=== PATIENT | female | born 2000 | race Caucasian/White ===

== ENCOUNTER → 2021-09-08 | Outpatient (REF) | LOC: M PLAIMG 11:31 | PROVIDERS: ATTEND Internal Medicine | DX: R06.02 Shortness of breath (principal) ==

== ENCOUNTER 2021-12-02 10:47 | Emergency (ER) | payer OTHER ==
[~2021-12-02] VITALS: Ht 162.6 cm; Wt 66.8 kg
[2021-12-02] MEDS ORDERED: BUSP15TA47 (10:58)
[2021-12-02] MEDS ORDERED: TOPI25TA10 (10:58)
[2021-12-02] MEDS ORDERED: HYOS0.374 (10:58)
[2021-12-02] MEDS ORDERED: ESCITALOPRAM (10:58)
[2021-12-02] MEDS ORDERED: ZOLP10TA2 (10:58)
[2021-12-02] MEDS ORDERED: BACTDSTA (10:58)
[2021-12-02 12:43] LABS: BASO # 0.1 10^3/uL (0.0-0.2); EOS # 0.1 10^3/uL (0.0-0.5); EOS % 1.4 % (0.0-3.0); HEMOGLOBIN 13.7 g/dl (12.0-15.5); LYMPH # 2.5 10^3/uL (1.5-5.0); LYMPH % 31.1 % (24.0-44.0); MEAN CORPUSCULAR HEMOGLOBIN 31.9 pg (27.0-33.0); MEAN CORPUSCULAR HGB CONC 34.3 g/dl (32.0-36.5); MEAN CORPUSCULAR VOLUME 93.2 fl (80.0-96.0); MONO # 0.5 10^3/uL (0.0-0.8); MONO % 5.8 % (2.0-8.0); NEUTROPHILS # 4.9 10^3/uL (1.5-8.5); NEUTROPHILS % 60.3 % (36.0-66.0); PLATELET COUNT, AUTOMATED 362 10^3/uL (150-450); RED BLOOD COUNT 4.29 10^6/uL (4.00-5.40); WHITE BLOOD COUNT 8.1 10^3/uL (4.0-10.0)
[2021-12-02 13:19] LABS: HCG, SERUM QUALITATIVE NEGATIVE (NEGATIVE)
[2021-12-02 13:30] LABS: ALBUMIN 4.4 GM/DL (3.2-5.2); ALT/SGPT 18 U/L (12-78); BILIRUBIN,DIRECT < 0.1 MG/DL (0.0-0.2); BILIRUBIN,TOTAL 0.3 MG/DL (0.2-1.0); BLOOD UREA NITROGEN 6 MG/DL (7-18); CALCIUM LEVEL 9.2 MG/DL (8.5-10.1); CARBON DIOXIDE LEVEL 22 MEQ/L (21-32); CHLORIDE LEVEL 110 MEQ/L (98-107); CREATININE FOR GFR 0.94 MG/DL (0.55-1.30); GLOMERULAR FILTRATION RATE > 60.0 (>60); GLUCOSE, FASTING 80 MG/DL (70-100); LIPASE 97 U/L (73-393); POTASSIUM SERUM 4.4 MEQ/L (3.5-5.1); SODIUM LEVEL 138 MEQ/L (136-145); TOTAL PROTEIN 7.8 GM/DL (6.4-8.2)
[2021-12-02] MEDS ORDERED: NS 1,000 ML IV ONE (14:10)
[2021-12-02] MEDS ORDERED: ONDANSETRON 4MG 2ML VIAL IV ONE (14:10)
[2021-12-02] MEDS ORDERED: KETOROLAC 30 MG/ML 1ML VIAL IV ONE (14:10)
[2021-12-02] MEDS ORDERED: ISOVUE-370 76% 100ML VIAL As Ordered ONE (14:17)
[2021-12-02] MEDS ORDERED: ONDA4TAB6 PO (16:26)
[2021-12-02 16:42] VITALS: BP 117/63
[2021-12-02 18:08] LABS: RSV AMPLIFICATION NEGATIVE (NEGATIVE)
== END 2021-12-02 16:44 | disposition home or self-care (01) ==
LOC: M ED 10:47
DX: N83.201 Unspecified ovarian cyst, right side (principal); K44.9 Diaphragmatic hernia without obstruction or gangrene; F32.A Depression, unspecified; K58.9 Irritable bowel syndrome, unspecified; Z88.0 Allergy status to penicillin; Z79.899 Other long term (current) drug therapy
CPT/HCPCS: 74177; 80048; 80076; 81001; 83690; 84703; 85025; 87631; 96361; 96374; 96375; 99284; J1885; J2405; Q9967

== ENCOUNTER 2021-12-16 14:35 | Emergency (ER) | payer OTHER ==
[~2021-12-16] VITALS: Ht 162.6 cm; Wt 66.8 kg
[~2021-12-16 14:35] MED LIST: BACTDSTA; BUSP15TA47 PO; ESCITALOPRAM; HYOS0.374 PO; ONDA4TAB6 PO; TOPI25TA10 PO; ZOLP10TA2 PO
[2021-12-16] MEDS ORDERED: NS 1,000 ML IV ONE (16:45)
[2021-12-16] MEDS ORDERED: KETOROLAC 30 MG/ML 1ML VIAL IV ONE (16:45)
[2021-12-16 17:57] LABS: BASO # 0.1 10^3/uL (0.0-0.2); BASO % 0.6 % (0.0-1.0); EOS # 0.1 10^3/uL (0.0-0.5); EOS % 1.7 % (0.0-3.0); HEMOGLOBIN 12.8 g/dl (12.0-15.5); LYMPH # 3.2 10^3/uL (1.5-5.0); LYMPH % 39.2 % (24.0-44.0); MEAN CORPUSCULAR HEMOGLOBIN 31.5 pg (27.0-33.0); MEAN CORPUSCULAR HGB CONC 32.8 g/dl (32.0-36.5); MEAN CORPUSCULAR VOLUME 96.1 fl (80.0-96.0); MONO # 0.5 10^3/uL (0.0-0.8); NEUTROPHILS # 4.3 10^3/uL (1.5-8.5); NEUTROPHILS % 52.3 % (36.0-66.0); PLATELET COUNT, AUTOMATED 337 10^3/uL (150-450); RED BLOOD COUNT 4.06 10^6/uL (4.00-5.40); WHITE BLOOD COUNT 8.2 10^3/uL (4.0-10.0)
[2021-12-16 18:04] LABS: APPEARANCE, URINE CLEAR (CLEAR); BACTERIA, URINE AUTO NEGATIVE (NEGATIVE); BILIRUBIN, URINE AUTO NEGATIVE (NEGATIVE); BLOOD, URINE BLOOD 1+ (NEGATIVE); COLOR, URINE YELLOW (YELLOW); GLUCOSE, URINE (UA) AUTO NEGATIVE (NEGATIVE); KETONE, URINE AUTO NEGATIVE (NEGATIVE); LEUKOCYTE ESTERASE, URINE AUTO NEGATIVE (NEGATIVE); MUCUS, URINE SMALL (NEGATIVE); NITRITE, URINE AUTO NEGATIVE (NEGATIVE); PROTEIN, URINE AUTO NEGATIVE (NEGATIVE); RBC, URINE AUTO 1 /HPF (0-3); SPECIFIC GRAVITY URINE AUTO 1.012 (1.002-1.035); SQUAMOUS EPITHELIAL CELL UR AU 0 /HPF (0-6); UROBILINOGEN, URINE AUTO 0.2 mg/dL (0.0-2.0); WBC, URINE AUTO 1 /HPF (0-3)
[2021-12-16 18:24] LABS: ALBUMIN 3.9 GM/DL (3.2-5.2); ALT/SGPT 28 U/L (12-78); BILIRUBIN,DIRECT 0.1 MG/DL (0.0-0.2); BILIRUBIN,TOTAL 0.3 MG/DL (0.2-1.0); BLOOD UREA NITROGEN 7 MG/DL (7-18); CALCIUM LEVEL 8.9 MG/DL (8.5-10.1); CARBON DIOXIDE LEVEL 25 MEQ/L (21-32); CHLORIDE LEVEL 110 MEQ/L (98-107); CREATININE FOR GFR 0.67 MG/DL (0.55-1.30); GLOMERULAR FILTRATION RATE > 60.0 (>60); GLUCOSE, FASTING 76 MG/DL (70-100); LIPASE 93 U/L (73-393); POTASSIUM SERUM 3.4 MEQ/L (3.5-5.1); SODIUM LEVEL 141 MEQ/L (136-145)
[2021-12-16] MEDS ORDERED: ISOVUE-370 76% 100ML VIAL As Ordered ONE (18:37)
[2021-12-16 18:46] LABS: HCG, SERUM QUALITATIVE NEGATIVE (NEGATIVE)
[2021-12-16] MEDS ORDERED: metroNIDAZOLE (FLAGYL) 500MG TABLET PO ONE (20:25)
[2021-12-16] MEDS ORDERED: CIPROFLOXACIN 500MG TABLET PO ONE (20:25)
[2021-12-16] MEDS ORDERED: MORPHINE 4 MG/ML 1ML VIAL/SYRINGE IV ONE (20:25)
[2021-12-16] MEDS ORDERED: METR-265 PO (20:29)
[2021-12-16] MEDS ORDERED: CIPR-249 PO (20:29)
[2021-12-16 20:55] VITALS: BP 131/79
[2021-12-17] MEDS ORDERED: ONDA4TAB6 PO (11:03)
[2021-12-17] MEDS ORDERED: LEXA1TAB PO (11:03)
[2021-12-17] MEDS ORDERED: MELA3TAB30 PO (11:03)
[2021-12-17] MEDS ORDERED: IBUP-1720 PO (11:03)
== END 2021-12-16 21:41 | disposition home or self-care (01) ==
LOC: M ED 14:35
DX: K38.8 Other specified diseases of appendix (principal); N83.201 Unspecified ovarian cyst, right side; F32.A Depression, unspecified; K58.9 Irritable bowel syndrome, unspecified; Z88.0 Allergy status to penicillin; Z79.899 Other long term (current) drug therapy
CPT/HCPCS: 74177; 76830; 76856; 80048; 80076; 81001; 83605; 83690; 84703; 85025; 87486; 87581; 87633; 87798; 93976; 96374; 96375; 99284; J1885; J2270; Q9967

== ENCOUNTER 2021-12-16 22:00 | Inpatient (IN) | payer OTHER ==
[~2021-12-16] VITALS: Ht 162.6 cm; Wt 67.5 kg
[~2021-12-16 22:00] MED LIST changes: +CIPR-249 PO; +METR-265 PO
[2021-12-17 01:31] LABS: BASO # 0.1 10^3/uL (0.0-0.2); BASO % 0.6 % (0.0-1.0); EOS # 0.2 10^3/uL (0.0-0.5); EOS % 1.8 % (0.0-3.0); HEMATOCRIT 35.4 % (36.0-47.0); LYMPH # 4.1 10^3/uL (1.5-5.0); LYMPH % 40.7 % (24.0-44.0); MEAN CORPUSCULAR HEMOGLOBIN 31.7 pg (27.0-33.0); MEAN CORPUSCULAR HGB CONC 33.9 g/dl (32.0-36.5); MEAN CORPUSCULAR VOLUME 93.7 fl (80.0-96.0); MONO # 0.7 10^3/uL (0.0-0.8); MONO % 7.2 % (2.0-8.0); NEUTROPHILS % 49.5 % (36.0-66.0); PLATELET COUNT, AUTOMATED 316 10^3/uL (150-450); RED BLOOD COUNT 3.78 10^6/uL (4.00-5.40)
[2021-12-17 01:59] LABS: BLOOD UREA NITROGEN 6 MG/DL (7-18); CALCIUM LEVEL 8.3 MG/DL (8.5-10.1); CARBON DIOXIDE LEVEL 25 MEQ/L (21-32); CHLORIDE LEVEL 110 MEQ/L (98-107); CREATININE FOR GFR 0.67 MG/DL (0.55-1.30); GLOMERULAR FILTRATION RATE > 60.0 (>60); GLUCOSE, FASTING 89 MG/DL (70-100); SODIUM LEVEL 141 MEQ/L (136-145)
[2021-12-17] MEDS ORDERED: NS 1,000 ML IV ONE (06:15)
[2021-12-17] MEDS ORDERED: KCL 10MEQ/100ML SWI (KRUN) 10 MEQ in IV 1 EA IV ONE (06:15)
[2021-12-17] MEDS ORDERED: KETOROLAC 30 MG/ML 1ML VIAL IV ONE (06:30)
[2021-12-17] MEDS ORDERED: KETOROLAC 30 MG/ML 1ML VIAL IV PRN (08:10)
[2021-12-17] MEDS ORDERED: ACETAMINOPHEN TAB 650MG DOSE (2X325MG) PO PRN (08:10)
[2021-12-17] MEDS ORDERED: traMADol 50 MG TAB PO PRN (08:10)
[2021-12-17] MEDS ORDERED: ONDA4TAB6 PO (11:03)
[2021-12-17] MEDS ORDERED: IBUP-1720 PO (11:03)
[2021-12-17] MEDS ORDERED: MELA3TAB30 PO (11:03)
[2021-12-17] MEDS ORDERED: LEXA1TAB PO (11:03)
[2021-12-17] MEDS ORDERED: HOME MED LIST COMPLETE! XX SCH (11:05)
[2021-12-17] MEDS: PANTOPRAZOLE 40MG TAB (PROTONIX) PO SCH (11:20)
[2021-12-17] MEDS: SUCRALFATE SUSP 1GM/10ML UD PO SCH ×4 (11:20→20:10)
[2021-12-17] MEDS: CIPROFLOXACIN 400 MG in IV 1 EA IV SCH ×2 (11:28→20:11)
[2021-12-17] MEDS ORDERED: ONDANSETRON 4MG 2ML VIAL IV PRN (13:25)
[2021-12-17] MEDS: metroNIDAZOLE 500 MG in IV 1 EA IV SCH ×2 (13:30→18:20)
[2021-12-17 16:35] VITALS: BP 109/70
[2021-12-17] MEDS: ESCITALOPRAM OXALATE 10 MG TAB (LEXAPRO) PO SCH (18:19)
[2021-12-17 20:00] VITALS: BP 110/70
[2021-12-17] MEDS: TOPIRAMATE (TopAMAX) 25 MG TAB PO SCH (20:10)
[2021-12-17] MEDS: busPIRone 5 MG TAB PO SCH (20:10)
[2021-12-17] MEDS ORDERED: RAMELTEON 8 MG TAB (ROZEREM) PO SCH (21:00)
[2021-12-18] MEDS: metroNIDAZOLE 500 MG in IV 1 EA IV SCH ×2 (02:22→10:17)
[2021-12-18 04:00] VITALS: BP 106/56
[2021-12-18 08:51] LABS: HEMATOCRIT 36.3 % (36.0-47.0); HEMOGLOBIN 12.1 g/dl (12.0-15.5); MEAN CORPUSCULAR HGB CONC 33.3 g/dl (32.0-36.5); PLATELET COUNT, AUTOMATED 314 10^3/uL (150-450); RED BLOOD COUNT 3.78 10^6/uL (4.00-5.40); WHITE BLOOD COUNT 8.3 10^3/uL (4.0-10.0)
[2021-12-18] MEDS: busPIRone 5 MG TAB PO SCH (08:56)
[2021-12-18] MEDS: SUCRALFATE SUSP 1GM/10ML UD PO SCH ×2 (08:56→12:25)
[2021-12-18] MEDS: ESCITALOPRAM OXALATE 10 MG TAB (LEXAPRO) PO SCH (08:56)
[2021-12-18] MEDS: CIPROFLOXACIN 400 MG in IV 1 EA IV SCH (08:56)
[2021-12-18] MEDS: TOPIRAMATE (TopAMAX) 25 MG TAB PO SCH (08:57)
[2021-12-18] MEDS: PANTOPRAZOLE 40MG TAB (PROTONIX) PO SCH (08:57)
[2021-12-18 09:24] LABS: BLOOD UREA NITROGEN 6 MG/DL (7-18); CALCIUM LEVEL 8.5 MG/DL (8.5-10.1); CARBON DIOXIDE LEVEL 26 MEQ/L (21-32); CHLORIDE LEVEL 109 MEQ/L (98-107); CREATININE FOR GFR 0.62 MG/DL (0.55-1.30); GLOMERULAR FILTRATION RATE > 60.0 (>60); GLUCOSE, FASTING 87 MG/DL (70-100); SODIUM LEVEL 139 MEQ/L (136-145)
[2021-12-18] MEDS ORDERED: KETO10TAB PO (09:52)
[2021-12-18] MEDS ORDERED: PANT40TA29 PO (09:52)
== END 2021-12-18 12:25 | disposition home or self-care (01) | DRG 395 ==
LOC: M ED 22:00 → M ED INP 12-17 08:06 → ENRESERV 12-17 15:58 → M 4MAIN 12-17 16:35
PROVIDERS: ADMIT Internal Medicine; ATTEND Internal Medicine
DX: K35.80 Unspecified acute appendicitis (principal); K58.0 Irritable bowel syndrome with diarrhea; Z88.0 Allergy status to penicillin; Z79.899 Other long term (current) drug therapy; N83.201 Unspecified ovarian cyst, right side; G47.00 Insomnia, unspecified; F41.9 Anxiety disorder, unspecified; F32.A Depression, unspecified